=== PATIENT | male | born 1960 | race Caucasian/White ===

== ENCOUNTER 2017-03-16 10:40 | Emergency (ER) | payer OTHER ==
[2017-03-16] MEDS ORDERED: NS 0.9% 1000 ML* 1,000 ML IV ONE (11:07)
[2017-03-16] MEDS ORDERED: HYDROmorphone INJ* 1 MG/ML CARPUJECT SYRINGE IV ONE (11:07)
[2017-03-16] MEDS ORDERED: Ondansetron INJ* 2 MG/ML VIAL IV ONE (11:07)
[2017-03-16] MEDS ORDERED: HYDROmorphone INJ* 1 MG/ML CARPUJECT SYRINGE IV SLOW PU ONE ×2 (11:51→13:16)
[2017-03-16 11:58] LABS: Hematocrit 38 % (42-52); Hemoglobin 12.7 g/dl (14.0-18.0); Mean Corpuscular HGB Conc 34 g/dl (31-36); Mean Corpuscular Hemoglobin 31 pg (27-31); Mean Corpuscular Volume 92 fL (80-94); Mean Platelet Volume 9 um3 (7.4-10.4); Red Blood Count 4.09 10^6/ul (4.0-5.4); Red Cell Distribution Width 13 % (10.5-15); White Blood Count 7.6 10^3/ul (3.5-10.8)
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
[2017-03-16 12:11] LABS: Albumin 3.8 g/dL (3.2-5.2); BUN/Creatinine Ratio 18.1 (8-20); C Reactive Protein 2.03 mg/L (< 5.00); Calcium 8.3 mg/dL (8.6-10.3); EGFR African American 107.6 (>60); EGFR Non-African American 83.6 (>60); Globulin 1.9 g/dL (2-4); Potassium 3.7 mmol/L (3.5-5.0); Total Bilirubin 0.7 mg/dL (0.2-1.0); Total Protein 5.7 g/dL (6.4-8.9)
[2017-03-16] MEDS ORDERED: cefTRIAXone VIAL(*) 1,000 MG in NS 0.9% 50 ML* 50 ML IVPB ONE (12:29)
[2017-03-16 12:46] LABS: Erythrocyte Sed Rate 8 mm/Hr (0-20)
[2017-03-16 13:34] VITALS: BP 129/79
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
--- NOTE | 2017-03-21 10:42 | RAD ---
INDICATION: Right foot injury. TECHNIQUE: 2 views of the right foot were obtained. FINDINGS: These films have just become available for interpretation on March 21, 2017. There are postsurgical changes. The patient is status post fusion of the first metatarsal-phalangeal joint. There are also postsurgical changes in the calcaneus with multiple plates and surgical screws from a reduction of a prior comminuted fracture. In addition, there appears to be an acute nondisplaced transverse fracture base of the fifth metatarsal. The results of this examination were called to the emergency department charge nurse Elle. IMPRESSION: ACUTE TRANSVERSE NONDISPLACED FRACTURE OF THE BASE OF THE FIFTH METATARSAL.
== END 2017-03-16 13:54 | disposition home or self-care (01) ==
LOC: ED 10:40
DX: S82.202A Unspecified fracture of shaft of left tibia, initial encounter for closed fracture (principal); V09.9XXA Pedestrian injured in unspecified transport accident, initial encounter; Y93.9 Activity, unspecified; Y92.9 Unspecified place or not applicable
CPT/HCPCS: 36415; 80053; 85025; 85652; 86140; 86850; 86900; 86901; 96374; 96375; 96376; 99283; J0696; J1170; J2405

== ENCOUNTER 2017-11-22 17:45 | Emergency (ER) | payer OTHER ==
--- NOTE | 2017-11-22 17:46 | UC ---
Cardiac HPI - HPI Summary HPI Summary: 56 yo male presents with acute chest pain. He was brought to urgent care by his fiancee. Pt tells me that he was taking a shower and when he got out he developed chest pain, feeling his heart race, and felt like he "just ran a marathon". He did not want to call 911 or go to the hospital, so his fiancee brought him to urgent care. He denies cardiac history, but does say his brother needed a CABG performed. Onset of chest pain was about 20 minutes ago. - History of Current Complaint Stated Complaint: CHEST PAIN Time Seen by Provider: 11/22/17 17:46 Hx Obtained From: Patient Onset/Duration: Sudden Onset Initial Severity: Moderate Current Severity: Moderate Pain Intensity: 6 - Allergy/Home Medications Allergies/Adverse Reactions: Allergies Allergy/AdvReac Type Severity Reaction Status Date / Time No Known Allergies Allergy Verified 11/22/17 18:03 PMH/Surg Hx/FS Hx/Imm Hx GI/ History: Gastroesophageal Reflux Other History Of: Negative For: Anticoagulant Therapy - Surgical History Surgical History: Yes Surgery Procedure, Year, and Place: 2012 - LEFT FX TIB/FIB, RIGHT CALCANEOUS FX X2, L1 COMPRESSION FX, TOE SURGERY 2014 W/ PINS. 2011 ARTHROSCOPIC LEFT KNEE - Family History Known Family History: Positive: Cardiac Disease - Older brother: coronary artery disease - Social History Occupation: Employed Full-time Lives: With Family Alcohol Use: None Substance Use Type: Marijuana Substance Use Comment - Amount & Last Used: daily for chronic pain Smoking Status (MU): Former Smoker Length of Time of Smoking/Using Tobacco: - 1989 When Did the Patient Quit Smoking/Using Tobacco: 1989 - Immunization History Most Recent Tetanus Shot: UNSURE Review of Systems Constitutional: Negative Skin: Negative Eyes: Negative ENT: Negative Respiratory: Shortness Of Breath Cardiovascular: Chest Pain Gastrointestinal: Negative Genitourinary: Negative Neurovascular: Negative Neurological: Negative Psychological: Negative All Other Systems Reviewed And Are Negative: Yes Physical Exam - Summary Physical Exam Summary: GENERAL: Anxious appearing. SKIN: No rashes, sores, lesions, or open wounds. NECK: Supple. Nontender. No lymphadenopathy. CHEST: CTAB. No r/r/w. No accessory muscle use. Breathing comfortably and in no distress. CV: Tachycardic and irregular. Pulses intact. Brisk cap refill. NEURO: Alert. PSYCH: Age appropriate behavior. Triage Information Reviewed: Yes Vital Signs: Vital Signs: Temp Pulse Resp BP Pulse Ox 98.3 F 133 20 122/81 100 11/22/17 17:57 11/22/17 17:57 11/22/17 17:57 11/22/17 17:57 11/22/17 17:57 - Assessment/Plan Course Of Treatment: EKG reveals afib with 144bpm and minimal ST depressions. No STEMI as read by Dr. Rodriguez. Upon inital presentation, pt was diaphoretic and breathing heavily complaining of chest pain. After bringing him to the stretcher via wheelchair and applying EKG and 2L oxygen NC - pt calmed down and was breathing more comfortably. IV access was obtained and NS started. I advised him and his fiancee of the new onset of afib and advised they be further evaluated and treated at the ED with transfer by ambulance. Pt was agreeable to this plan and left via ambulance - Clinical Impression Provider Diagnoses: New onset Afib. Chest pain Discharge - Sign-Out/Discharge Documenting (check all that apply): Discharge/Admit/Transfer - Discharge Plan Condition: Stable Disposition: TRANS HIGHER LVL OF CARE FAC Referrals: Pradeep Nevarez MD [Primary Care Provider] - - Billing Disposition and Condition Condition: STABLE Disposition: Trans Higher Lvl of Care Fac
[2017-11-22 18:02] VITALS: BP 122/81
[2017-11-22] MEDS ORDERED: NS 0.9% 1000 ML* 1,000 ML IV ONE (18:06)
== END 2017-11-22 18:24 | disposition short-term general hospital (02) ==
LOC: UCEAST 17:45
DX: I48.91 Unspecified atrial fibrillation (principal); R07.89 Other chest pain; R06.02 Shortness of breath; K21.9 Gastro-esophageal reflux disease without esophagitis; Z87.891 Personal history of nicotine dependence; Z82.49 Family history of ischemic heart disease and other diseases of the circulatory system
CPT/HCPCS: 93005; 99213; G0463

== ENCOUNTER 2017-11-22 18:44 | Observation (INO) | payer OTHER ==
[2017-11-22] MEDS ORDERED: Diltiazem DRIP* 100 MG/100 ML ADDV.BAG IVPB ONE (18:48)
[2017-11-22] MEDS: Diltiazem IV* 5 MG/ML 5 ML VIAL (for loading dose/IV Push) (25 MG) IV SLOW PU ONE ×2 (18:53→18:59)
[2017-11-22] MEDS ORDERED: Diltiazem IV* 5 MG/ML 5 ML VIAL (for loading dose/IV Push) (25 MG) IV SLOW PU ONE (18:58)
[2017-11-22] MEDS ORDERED: Diltiazem IV VIAL* 125 MG in NS 0.9% 100 ML* 100 ML IV ONE ×2 (19:00→20:31)
[2017-11-22] MEDS: NS 0.9% 1000 ML* 2,000 ML IV ONE (19:27)
--- NOTE | 2017-11-22 19:31 | RAD ---
INDICATION: Tachycardia COMPARISON: None. TECHNIQUE: Single AP portable view of the chest was obtained. FINDINGS: Image quality is compromised due to the relative inferiority of a portable chest x-ray. The heart and mediastinum exhibit normal size and contour. The lungs are grossly clear. There is no evidence of a large pleural effusion. Visualized bones are normal for the patient's age. IMPRESSION: No radiographic evidence for acute cardiopulmonary abnormality on this portable chest x-ray.
[2017-11-22 20:02] LABS: ABS Basophils 0.1 10^3/ul (0-0.2); ABS Eosinophils 0 10^3/ul (0-0.6); ABS Lymphocytes 1.3 10^3/ul (1.0-4.8); ABS Monocytes 0.6 10^3/ul (0-0.8); ABS Neutrophils 7.5 10^3/ul (1.5-7.7); ABS Nucleated RBC 0 10^3/ul; Eosinophil % 0.1 % (0-6); Hematocrit 38 % (42-52); Hemoglobin 13.2 g/dl (14.0-18.0); Lymphocyte % 13.6 % (25-47); Mean Corpuscular HGB Conc 35 g/dl (31-36); Mean Corpuscular Hemoglobin 32 pg (27-31); Mean Corpuscular Volume 92 fL (80-94); Mean Platelet Volume 8.6 um3 (7.4-10.4); Nucleated Red Blood Cells % 0; Platelet Count 217 10^3/ul (150-450); Red Blood Count 4.12 10^6/ul (4.00-5.40); Red Cell Distribution Width 14 % (10.5-15); White Blood Count 9.4 10^3/ul (3.5-10.8)
[2017-11-22 20:14] LABS: EGFR Non-African American 80.7 (>60)
[2017-11-22 20:52] LABS: INR 1.06 (0.77-1.02)
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
[2017-11-22] MEDS ORDERED: Al Hydrox/Mg Hydrox/Simet LIQ* 30 ML UDC PO PRN (21:18)
[2017-11-22] MEDS ORDERED: Albuterol 2.5 MG/3 ML NEB.SOL* (0.083%) INH PRN (21:18)
[2017-11-22] MEDS ORDERED: Morphine VIAL* 4 MG/ML VIAL (1 ml vial) IV PRN (21:18)
[2017-11-22] MEDS ORDERED: Ondansetron 40 MG VIAL* 2 MG/ML 20 ML VIAL IV PRN (21:18)
[2017-11-22] MEDS ORDERED: Albuterol HFA INHALER* 8 gm MDI INH PRN (21:27)
[2017-11-22] MEDS ORDERED: Lidocaine 4% TOPICAL* 50 ML TOP.SOLN TOPICAL PRN (21:27)
[2017-11-22] MEDS ORDERED: NS 0.9% 1000 ML* 1,000 ML IV SCH (21:30)
[2017-11-22] MEDS: Apixaban* 5 MG TAB PO SCH (23:24)
--- NOTE | 2017-11-22 23:26 | PN ---
Progress Note - Progress Note Date of Service: 11/22/17 Note: Patient converted to NSR. Will d/c drip and order Cardizem 30 mg q6 hr. Will keep NPO for now.
[2017-11-22] MEDS: Diltiazem TAB* 30 MG PO SCH (23:43)
--- NOTE | 2017-11-23 02:49 | HP ---
ADMISSION HISTORY AND PHYSICAL: DATE OF ADMISSION: 11/22/17 PATIENT OF: Ada Amado DO * (DICTATED BY CHRISTIANO CURIEL) PRIMARY CARE PHYSICIAN: Dr. Nevarez. CHIEF COMPLAINT: Chest pain and palpitation. HISTORY OF PRESENT ILLNESS: Mr. Schmitz is a pleasant 56-year-old gentleman , who has a past medical history significant for GERD, with remote diagnosis of Beaulieu's esophagus as well as a history of traumatic fall with injury to lower extremity and lumbar spine, who presented to the urgent care clinic earlier this morning with complaints of chest pain. The patient was evaluated at the Urgent Care and had an EKG that revealed a rapid atrial fibrillation. The patient himself notes that his chest pain eventually resolved after 1 dose of nitro. He has never experienced any similar complaints in the past. According to his girlfriend, she checked his pulse and noticed that it was going fast and very irregular. The patient denies any syncopal episode, dizziness, difficulty breathing, or any other associated symptoms. He denies any nausea, vomiting, diaphoresis, or constant chest pain. He was evaluated at the Urgent Care and eventually transferred to the [facility] for further evaluation of rapid AFib of unknown etiology. Upon questioning the patient right now, he denies any illicit drug use or excessive caffeine use. He drinks 1 cup of coffee a day, has never used any illicit drug. Also, he smokes marijuana occasionally for medicinal use given his chronic pain. The patient has had a traumatic fall 5 years ago about 50 feet high, after which he shattered both his ankles, needed several orthopedic surgeries with hardware placement as well as chronic fracture of L1, for which he has been seen in the pain clinic multiple times for evaluation. He was evaluated in the emergency room and found to have a new onset of atrial fibrillation with rapid ventricular response. He was started on Cardizem and drip and had laboratory workup that revealed a flat troponin. He was given IV fluid bolus and reevaluated for chest pain. The patient had no chest pain after transportation from the Urgent Care to the emergency room. He had tablets of baby aspirin as well as 1 nitroglycerin 0.4 mg sublingual with immediate relief. His laboratory workup in the ED revealed a normal potassium of 4.4 as well as normal magnesium of 1.9. He continued to have atrial fibrillation with rapid ventricular response, for which the rate of diltiazem was increased to 10 mg per hour and we were asked to see the patient for further evaluation and to consider admission for observation and Cardiology consult. At the time of admission, the patient continued to be stable and denied any recurrent chest pain. PAST MEDICAL HISTORY: As mentioned above significant for: 1. Asthma. 2. GERD with remote history of Beaulieu's esophagus. 3. Traumatic injury from a long fall about 5 years ago, for which he had multiple orthopedic surgeries. PAST SURGICAL HISTORY: Significant for bilateral ankle ORIF with hardware as well as tib-fib fracture repair on the right side. He also had a history of chronic back pain from L1 compression fracture. MEDICATIONS: His current medications at home include: 1. Albuterol/Ventolin 2 puffs inhaled q.4 hours as needed for shortness of breath. 2. Voltaren 1% gel applied topically once a day. 3. Lidocaine 4% patch applied topically once daily. 4. Zofran 4 mg p.o. t.i.d. p.r.n. for nausea. 5. Protonix 40 mg p.o. daily. ALLERGIES: He has no known drug allergies. FAMILY HISTORY: He denies any family history of malignancies, hypertension, or diabetes. SOCIAL HISTORY: The patient is on disability. 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 He lives with a girlfriend. He smokes marijuana occasionally for medicinal use given his chronic back pain, but denies cigarette smoking and he does not drink alcohol. Caffeine intake is minimal. Healthcare proxy is his girlfriend and he is a full code. REVIEW OF SYSTEMS: See history of present illness for all positive findings, otherwise 14 systems for review of systems were reviewed and they were all negative. PHYSICAL EXAMINATION GENERAL: He is a pleasant, middle-aged gentleman, in no acute distress or discomfort at the time of admission. VITAL SIGNS: Revealed a temperature of 99.3, blood pressure of 109/77, pulse of 112, respirations of 11 with O2 sat of 99% on room air. HEENT: Head is normocephalic, atraumatic. Sclerae anicteric. PERRLA. EOMs intact. Oropharynx is pink and moist. NECK: Supple. Trachea midline. No cervical adenopathy, thyromegaly, or JVD. LUNGS: Clear to auscultation bilaterally. HEART: Irregular rate and rhythm. There are no rubs, murmurs, or gallops. BACK: With normal curvature. No CVA tenderness. There is moderate L1 tenderness noted on palpation, but no muscle spasm. ABDOMEN: Soft, nontender, and nondistended. No hernias, masses, or hepatosplenomegaly. EXTREMITIES: Without cyanosis, clubbing, or edema. RECTAL: Deferred at this time. 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 Tongue is midline and sensation is intact throughout. LABORATORY DATA: CBC with white count of 9400, hemoglobin 13.2, hematocrit of 38, and platelets of 217. Chemistry with sodium of 144, potassium 4.4, chloride 111, CO2 of 27, BUN of 18, creatinine of 0.9, glucose of 98, magnesium of 1.9. LFTs essentially within normal limits. TSH of 1.22. ACCESSORY DIAGNOSTIC DATA: Chest x-ray with no acute findings noted. EKG was done revealing atrial fibrillation with ventricular rate of 96 to 150. ASSESSMENT: A 56-year-old gentleman with past medical history significant for gastroesophageal reflux disease with a remote history of Beaulieu's esophagus as well as traumatic fall with lower extremity injury 5 years ago, who presented to the emergency room with acute onset of chest pain with associated atrial fibrillation with rapid ventricular response. ASSESSMENT AND PLAN: 1. Atrial fibrillation with rapid ventricular response. We will continue his diltiazem drip. The patient will be admitted to observation to the telemetry unit. We will start to anticoagulate him with Eliquis tonight. We will keep him n.p.o. after midnight except for medication in anticipation for possible cardioversion tomorrow morning. I did discuss the case with Dr. Blair, who was agreeable to see the patient in the morning for further evaluation. We will trend his troponin and repeat EKG in the morning awaiting rate control. 2. Chest pain. Appears to be resolved at this time; however, we cannot rule out any possibility of acute coronary artery syndrome. I will obtain trending troponins and repeat EKG in the morning. 3. Gastroesophageal reflux disease. We will continue his PPI coverage. 4. DVT prophylaxis. The patient is on Eliquis. 5. Code status. He is a full code. TIME SPENT: I have spent approximately 60 minutes admitting this patient and I discussed the case with my attending, Dr. Amado, who is agreeable to the plans. CHRISTIANO CURIEL [id number]/[facility] #: [id number] YESY
[2017-11-23] MEDS: Diltiazem TAB* 30 MG PO SCH (06:18)
[2017-11-23 06:43] LABS: ABS Basophils 0 10^3/ul (0-0.2); ABS Eosinophils 0.1 10^3/ul (0-0.6); ABS Lymphocytes 1.5 10^3/ul (1.0-4.8); ABS Monocytes 0.4 10^3/ul (0-0.8); ABS Neutrophils 3.1 10^3/ul (1.5-7.7); ABS Nucleated RBC 0 10^3/ul; Eosinophil % 1.5 % (0-6); Hematocrit 35 % (42-52); Hemoglobin 12.1 g/dl (14.0-18.0); Lymphocyte % 28.8 % (25-47); Mean Corpuscular HGB Conc 35 g/dl (31-36); Mean Corpuscular Hemoglobin 32 pg (27-31); Mean Corpuscular Volume 92 fL (80-94); Mean Platelet Volume 8.6 um3 (7.4-10.4); Nucleated Red Blood Cells % 0.1; Platelet Count 179 10^3/ul (150-450); Red Blood Count 3.76 10^6/ul (4.00-5.40); Red Cell Distribution Width 14 % (10.5-15); White Blood Count 5.1 10^3/ul (3.5-10.8)
[2017-11-23 06:56] LABS: EGFR Non-African American 92.3 (>60)
[2017-11-23] MEDS: Apixaban* 5 MG TAB PO SCH (08:53)
[2017-11-23 08:57] VITALS: BP 126/78
[2017-11-23] MEDS ORDERED: Diclofenac 1% GEL (NF) 100 GM TUBE TOPICAL SCH (09:00)
[2017-11-23] MEDS ORDERED: Omeprazole CAP* 20 MG PO SCH (09:00)
--- NOTE | 2017-11-24 12:37 | DS ---
CC: Dr. Nevarez DISCHARGE SUMMARY AGAINST MEDICAL ADVICE: DATE OF ADMISSION: 11/22/17 DATE OF DISCHARGE: 11/23/17 PRIMARY CARE PROVIDER: Dr. Nevarez. DISCHARGE DIAGNOSES: 1. Atrial fibrillation with rapid ventricular rate. 2. Chest pain, acute coronary syndrome ruled out. SECONDARY DIAGNOSES: 1. Asthma. 2. Gastroesophageal reflux disease. 3. Traumatic injury from a fall 5 years ago with multiple orthopedic surgeries including bilateral ankle open reduction and internal fixation with hardware as well as tibia-fibula fracture repair on the right and chronic back pain from L1 compression fracture. MEDICATIONS LIST: 1. Pantoprazole 40 mg p.o. daily. 2. Voltaren gel topical daily. 3. Zofran 8 mg p.o. t.i.d. as needed for nausea. 4. Lidocaine patch topical daily as needed for pain. 5. Albuterol HFA 2 puffs inhaled q.4 hours p.r.n. pain. New medications: 1. Cardizem CD 120 mg p.o. daily. 2. Eliquis 5 mg p.o. b.i.d. HOSPITAL COURSE: Mr. Schmitz is a 57-year-old male with a past medical history as stated above, who presented to the emergency room with complaints of chest pain and palpitations. He was, at first, evaluated at the Urgent Care and had an EKG that revealed rapid atrial fibrillation, was referred to the emergency room for further workup. His chest pain was retrosternal and subsided with sublingual nitroglycerin. For more details about his presentation , I refer you to his history and physical. In the emergency room, the patient had an EKG that showed atrial fibrillation with rapid ventricular rate at 144 beats per minute with minimal ST depression and diffuse leads. Chest x-ray showed no radiographic evidence for acute coronary abnormality. The patient was admitted to the telemetry floor and started on a Cardizem drip and anticoagulation with Eliquis. The plan was for cardiology evaluation and possible [place] cardioversion in the morning. Around 11 p.m., the patient converted from AFib to normal sinus rhythm and at that point, the Cardizem drip was stopped and he was started on oral Cardizem. In the morning, the patient was very anxious for discharge as today is his birthday and "I am not spending here in the hospital." I explained to the patient that the etiology of his atrial fibrillation is unclear at this time as he did not have any significant electrolyte abnormalities. His TSH was normal. He denies alcohol or caffeine intake as well as any drug use besides marijuana that he cultivates himself. I am concerned that the patient may have underlying coronary artery disease as the etiology. He states that he has had episodes of palpitations for months, but they were usually self-limited. This one was the first one that persisted enough to be captured on an EKG, so I believe he has had paroxysmal atrial fibrillation for months at this point. I am especially concerned with the fact his chest pain was relieved by nitro. When he converted to normal sinus rhythm , his EKG showed only sinus bradycardia with no ischemic changes and he had serial troponins that were negative. I had a lengthy conversation with the patient and his fiancee about my concerns and the need for further evaluation. The patient would benefit of a transthoracic echocardiogram to evaluate his ejection fraction and valves. I believe he would also require a stress test for further coronary artery disease risk stratification. The patient understands the risks, benefits, and alternatives including progression of heart disease, recurrent atrial fibrillation, stroke, [place], further arrhythmias, and . His CHADS score is 0, but from history, it appears the patient has been in and out of atrial fibrillation for months and without a complete evaluation, I am concerned that he may have an elevated risk for stroke. We talked about the risks and benefits of anticoagulation, especially about the risk of bleeding. The patient states that he has very bad esophagitis with Beaulieu esophagus and he has a very difficult time with any pills. He understands that anticoagulation would put him at risk of bleeding, but considering his age, I believe a CVA would be more catastrophic than a GI bleed. So, at this point, with this incomplete evaluation, I believe it is safest to have him on a rate control drug, so if he goes back into atrial fibrillation, at least he would not be as fast as the episode he had yesterday and to be on anticoagulation with Eliquis to give him some protection from a stroke until his full evaluation is performed. The patient understands the explanations and he is agreeable with a trial of the medication. He states that he will follow up with Dr. Nevarez as soon as possible and is willing to see Cardiology as outpatient also. DIET: Heart-healthy diet. ACTIVITY: As tolerated. DISPOSITION: To home against medical advice. STATUS WHILE IN THE HOSPITAL: Observation. Please keep in mind this is a summarized version of this patient's hospital stay. If you need more information, please feel free to call me at [phone] or please obtain the full medical records. TIME SPENT: Approximately 45 minutes were spent to complete this discharge. [id number]/[facility] #: [id number] YESY
== END 2017-11-23 09:51 | disposition left against medical advice (07) ==
LOC: ED 18:44 → MEDTELE 21:18
PROVIDERS: ADMIT Pediatrics; ATTEND Internal Medicine
DX: I48.91 Unspecified atrial fibrillation (principal); R07.9 Chest pain, unspecified; J45.909 Unspecified asthma, uncomplicated; K21.9 Gastro-esophageal reflux disease without esophagitis; K22.70 Barrett's esophagus without dysplasia; D64.9 Anemia, unspecified; Z79.899 Other long term (current) drug therapy
CPT/HCPCS: 36415; 71045; 80048; 80053; 80061; 82550; 82553; 83605; 83690; 83735; 83880; 84443; 84484; 85025; 85379; 85610; 85730; 93005; 94640; 96374; 99285; A9270-GY; G0378

== ENCOUNTER → 2019-07-26 05:42 | Day surgery (SDC) | payer MEDICARE ==
[~2019-07-26 05:42] MED LIST: Buffered Lidocaine 1% SYRIN* 1 ML/SYRINGE INTRADERM ONE; Bupivacaine 0.5%* 50 ML MDV VIAL ONE; DiMENhydriNATE IV* 50 MG/ML VIAL ONE; Famotidine IV* 10 MG/ML 2 ML (20 mg) IV ONE; Famotidine IV* 10 MG/ML 2 ML (20 mg) ONE; Ketorolac INJ* 30 MG/ML 1 ML VIAL ONE; Lactated Ringers 1000 ML Bag* 1,000 ML IV SCH; Lidocaine 2% PF * 5 ML VIAL ONE; Midazolam* 1 MG/ML 5 ML VIAL (5 MG) ONE; Ondansetron INJ* 2 MG/ML VIAL ONE; Propofol* 10 MG/ML 20 ML BTL ONE; ceFAZolin 2 GM in NS PREMIX(*) 2 GM/100 ML BAG IVPB ONE; fentaNYL* 50 MCG/ML 2 ML VIAL (100 MCG VIAL) ONE
[2019-07-26 09:17] VITALS: BP 108/64
--- NOTE | 2019-07-26 10:37 | OP ---
Operative Report - Blank - Operative Report Date of Operation: 07/26/19 Note: PATIENT: Javier Schmitz DATE OF : 1960 DATE OF SURGERY: 07/26/2019 SURGEON: Hoonrio Menendez MD COMMERCIAL ILLUSTRATOR: CHRISTIANO Trejo, whos assistance was necessary for positioning, retraction, help with instrumentation, and closure. ANESTHESIOLOGIST: Dr. Salguero PREOPERATIVE DIAGNOSIS: Right 3rd painful hammertoe status post prior PIP fusion POSTOPERATIVE DIAGNOSIS: Right 3rd painful hammertoe status post prior PIP fusion OPERATION: Revision right 3rd hammertoe correction with DIP resection arthroplasty ANESTHESIA: MAC IMPLANTS: 0.045 k-wire TOURNIQUET TIME: Less than 1 hour with an ankle Esmarch tourniquet SPECIMENS: none ESTIMATED BLOOD LOSS: minimal COMPLICATIONS: none STATUS: Stable from the operating room to the recovery room and then home INDICATIONS FOR PROCEDURE: Javier has had multiple prior right foot and ankle surgeries. One of these included second and third hammertoe corrections with PIP fusions. The second toe has done well, but he continues to have pain at the distal aspect of the third toe. He does have some recurrent hammering distally. This is causing him daily, limiting pain. Both operative and non-operative treatment alternatives were reviewed. Further, the nature and risks of surgery were reviewed in careful detail. Our discussions regarding the risks of surgery included, but were not limited to, infection, wound problems, nerve injury, neuroma, RSD, persistent symptoms, recurrent deformity, blood clot, need for further surgery, failure of the surgery, and even the remote chance of catastrophic complication. DESCRIPTION OF PROCEDURE: The patient was seen in the preoperative holding unit and informed written consent was obtained. The appropriate extremity was marked. The patient was then brought to the operating room and carefully positioned on the operating room table. Anesthesia was induced. All bony prominences were padded with great care. A chlorhexidine based pre-scrub was performed followed by a chloraprep prep and drape in standard sterile fashion. A surgical safety pause was then conducted in which we confirmed the appropriate patient, extremity, planned procedure, availability of equipment, indication and administration of prophylactic antibiotics, and DVT prophylaxis in the form of a compression boot on the non-surgical extremity. I began with an Esmarch exsanguination of limb and placement of an ankle Esmarch tourniquet. An incision was made over the dorsal aspect of the third toe and taken down to the level of bone and joint. The PIP joint appeared solidly fused. There was some flexion apparent through the DIP joint. The collateral ligaments were released on both sides. I then used a small oscillating saw to osteotomize the distal aspect of the middle phalanx. This was then excised. I then placed a 0.045 K wire through the toe in an antegrade/ retrograde fashion. The resection and pin placement was then confirmed with fluoroscopy. The toe sat nice and straight clinically. There was no extension deformity appreciated at the MTP joint, so I decided not to perform a joint release and extensor tendon lengthening. The tourniquet was then released and the toe was nice and pink with good capillary refill. The wound was copiously irrigated and meticulously closed in layers utilizing 3- 0 Monocryl and 3-0 Nylon. A sterile dressing was then applied. The patient was then awakened from anesthesia and transferred to the recovery room in stable condition. There were no complications. All needle and sponge counts were correct at the end of the case. ATTESTATION: I attest I was present and scrubbed and performed the critical portions of the procedure myself. POSTOPERATIVE PLAN: Heel weightbearing and we will plan on 6 weeks with the k- wire.
== END | disposition home or self-care (01) ==
LOC: OR 05:42
PROVIDERS: ATTEND Orthopaedic Surgery
DX: M20.41 Other hammer toe(s) (acquired), right foot (principal); I48.91 Unspecified atrial fibrillation; J45.909 Unspecified asthma, uncomplicated; K21.0 Gastro-esophageal reflux disease with esophagitis; K22.70 Barrett's esophagus without dysplasia; F41.8 Other specified anxiety disorders; Z79.01 Long term (current) use of anticoagulants; M19.90 Unspecified osteoarthritis, unspecified site
CPT/HCPCS: 76000; C1776; J0690; J1240; J1885; J2250; J2405; J2704; J3010; J3490

== ENCOUNTER 2020-07-13 07:20 | Observation (INO) ==
[2020-07-13] MEDS ORDERED: NS 0.9% 1000 ml BAG 1,000 ML IV ONE (09:17)
[2020-07-13 09:19] LABS: ABS Lymphocytes 1.2 10^3/ul (1.0-4.8); ABS Monocytes 0.3 10^3/ul (0-0.8); ABS Neutrophils 4.5 10^3/ul (1.5-7.7); Eosinophil % 0.3 %; Hematocrit 41 % (42-52); Lymphocyte % 19.2 %; Mean Corpuscular HGB Conc 34 g/dL (31-36); Mean Corpuscular Hemoglobin 32 pg (27-31); Mean Corpuscular Volume 92 fL (80-94); Mean Platelet Volume 8.7 fL (7.4-10.4); Platelet Count 240 10^3/uL (150-450); Red Blood Count 4.44 10^6 /uL (4.18-5.48); Red Cell Distribution Width 14 % (10-15)
[2020-07-13 09:32] LABS: ALT 7 U/L (7-52); AST 9 U/L (13-39); Albumin 4.3 g/dL (3.2-5.2); Alkaline Phosphatase 32 U/L (34-104); Anion Gap 8 mmol/L (2-11); BUN/Creatinine Ratio 14.4 (8-20); Blood Urea Nitrogen 13 mg/dL (6-24); C Reactive Protein 1.46 mg/L (<8.01); CO2 Carbon Dioxide 24 mmol/L (22-32); Calcium 8.8 mg/dL (8.6-10.3); Chloride 104 mmol/L (101-111); EGFR African American 105.2 (>60); Globulin 2.1 g/dL (2-4); Glucose 104 mg/dL (70-100); Lipase < 10 U/L (11.0-82.0); Magnesium 1.9 mg/dL (1.9-2.7); Potassium 3.8 mmol/L (3.5-5.0); Sodium 136 mmol/L (135-145); Total Protein 6.4 g/dL (6.4-8.9)
[2020-07-13] MEDS ORDERED: Al Hydrox/Mg Hydrox/Simet LIQ 30 ML UDC PO PRN (10:46)
[2020-07-13] MEDS ORDERED: Ondansetron 4 mg VIAL 2 MG/ML 2 ml VIAL IV PRN (10:46)
[2020-07-13] MEDS ORDERED: Albuterol HFA INHALER 8 gm MDI INH PRN (10:48)
[2020-07-13] MEDS ORDERED: NS 0.9% 1000 ml BAG 1,000 ML IV SCH (11:00)
[2020-07-13] MEDS: Pantoprazole VIAL 40 MG VIAL IV SCH (12:21)
[2020-07-14] MEDS ORDERED: fentaNYL 100 mcg/2 ml 50 MCG/ML VIAL ONE (08:36)
[2020-07-14] MEDS ORDERED: Midazolam 10 mg/10 ml VIAL 1 mg/ml 10 ml VIAL (10 mg) ONE (08:36)
[2020-07-14] MEDS ORDERED: diPHENhydraMINE IV 50 MG/ML 1 ml VIAL (BENADRYL) ONE (08:36)
[2020-07-14] MEDS ORDERED: Lidocaine PATCH 5% PATCH TRANSDERM SCH (09:00)
[2020-07-14 09:59] VITALS: BP 115/75
[2020-07-14] MEDS: Pantoprazole VIAL 40 MG VIAL IV SCH (10:12)
[2020-07-14] MEDS ORDERED: Lidocaine Patch REMOVE PATCH PATCH OFF SCH (21:00)
== END 2020-07-14 12:10 | disposition home or self-care (01) ==
LOC: ED 07:20 → SSU 07:20
PROVIDERS: ADMIT Internal Medicine; ATTEND Internal Medicine